=== PATIENT | male | born 1965 | race Caucasian/White ===

== ENCOUNTER 2022-07-25 11:12 | Day surgery (SDC) | payer OTHER, SELFPAY ==
[2022-06-17 11:56] VITALS: BMI 32.9
[2022-07-06 13:52] VITALS: BMI 33.2
[2022-07-25 12:00] VITALS: BP 138/90; RESP 12; TEMP 36.9; O2SAT 98; BMI 33.0
[2022-07-25] MEDS: LACTATED RINGERS 1,000 ML 150 ML IV CONT (12:11)
--- NOTE | 2022-07-25 12:11 | WPDANESEPPF ---
Anes - Initial Pre Proc Eval Procedure: Operation Date: 07/25/22 13:00 Proposed Procedures p Screening Colonoscopy - Basil Howard MD Date/Time: 07/25/22 12:11 Surgeon: Basil Howard MD Pre Op Diagnosis: Family HX Malignant Neoplasm of Digestive Organ Patient Data Age: 57 Gender: M Height: 1.8 m Weight: 107.25 kg Last Vital Signs Temp 36.9 C 07/25/22 12:00 Resp 12 07/25/22 12:00 BP 138/90 07/25/22 12:00 Pulse Ox 98 07/25/22 12:00 O2 Del Method Room Air 07/25/22 12:00 Allergies Allergy/AdvReac Type Severity Reaction Status Date / Time No Known Allergies Allergy Verified 07/25/22 11:52 Home Medications Medication Instructions Recorded Confirmed Type sodium,potassium,mag sulfates 17.5 See Rx Instructions PO .COMPLEX 06/17/22 Rx gram-3.13 gram-1.6 gram oral soln #354 mL (Suprep Bowel Prep Kit) Patient hx anesthesia problems: none Family hx anesthesia problems: none Results Review: All pre-operative results and documents have been reviewed as part of the pre-operative evaluation. 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 Informed Consent: The patient's anesthetic plan and its attendant risks and benefits were discussed with the patient/family/POA. Questions were solicited and answers provided to the satisfaction of the patient/family/POA.
--- NOTE | 2022-07-25 12:23 | P.HP_ITS ---
History of Present Illness History of Present Illness Consent: Risks, benefits, and alternatives have been discussed and questions answered. Patient agrees to proceed with procedure. Chief complaint: Family HX Malignant Neoplasm of Digestive Organ Narrative: John Winters is a 57 year old male presents for screening colonoscopy. Patient reports that his current weight appetite and bowel movements are normal. Patient denies abdominal pain. He has had no bleeding. Family history is significant he has an uncle with colon cancer. Patient reports and he is unaware of any first-degree relatives with polyps or colon cancer. Patient presents today for screening colonoscopy. Review of Systems Review of Systems: review of systems noncontributory. 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 [employer] care concerns: No Agree to blood products: Yes Meds Home Medications and Allergies Home Medications Medication Instructions Recorded Confirmed Type sodium,potassium,mag sulfates 17.5 See Rx Instructions PO .COMPLEX 06/17/22 Rx gram-3.13 gram-1.6 gram oral soln #354 mL (Suprep Bowel Prep Kit) Allergies Allergy/AdvReac Type Severity Reaction Status Date / Time No Known Allergies Allergy Verified 07/25/22 11:52 Vital Signs Vital Signs - 24 hr 07/25/22 12:00 Temperature 98.4 F Respiratory Rate 12 Blood Pressure 138/90 Pulse Oximetry 98 Oxygen Delivery Room Air Exam Narrative: Physical exam reveals patient to be alert. Vital signs stable. HEENT exam is unremarkable. Patient is anicteric. Lungs are clear to auscultation and percussion. Heart is without murmur or extra sounds. Abdomen bowel sounds present soft nontender with no organomegaly. Digital external rectal exam is normal. Assessment and Plan Assessment and plan (1) Encounter for screening colonoscopy: Code(s): Z12.11 - Encounter for screening for malignant neoplasm of colon Status: Acute Assessment and Plan: Patient presents today for screening colonoscopy. Family history is significant for an uncle with colon cancer. Further recommendations will be given after endoscopy.
[2022-07-25 12:48] VITALS: BP 144/77; PULSE 77; RESP 16; O2SAT 100
[2022-07-25 12:58] VITALS: BP 136/82; PULSE 72; RESP 16; O2SAT 99
--- NOTE | 2022-07-25 13:03 | WPDANESPN ---
Anes - Prog Note Post-Op Date/Time: 07/25/22 13:03 Cardiovascular status: normal Respiratory status: normal Airway patency: baseline Mental status: baseline Post-Op hydration status: normal Vital Signs: Last Vital Signs Temp 36.9 C 07/25/22 12:00 Resp 12 07/25/22 12:00 BP 138/90 07/25/22 12:00 Pulse Ox 98 07/25/22 12:00 O2 Del Method Room Air 07/25/22 12:00 Pain Score (VAS): 0/10 I/O: Intake & Output 07/24/22 07/25/22 07/25/22 23:59 07:59 15:59 Intake Total 400 Balance 400 Patient Feedback: Patient satisfied with anesthetic care.
[2022-07-25 13:08] VITALS: BP 131/94; PULSE 69; RESP 16
--- NOTE | 2022-07-25 13:32 | SUR.PHASEII ---
PT AWAKE AND ALERT. DRINKING JUICE. DENIES PAIN. READY FOR DISCHARGE.
== END 2022-07-25 13:32 | disposition home or self-care (01) ==
PROVIDERS: PCP Family Medicine; Visit Provider Internal Medicine Gastroenterology
PROC: 0DJD8ZZ Inspection of Lower Intestinal Tract, Via Natural or Artificial Opening Endoscopic (ICD-10-PCS; CPT 45378; principal; 2022-07-25 13:00)
DX: Z12.11 Encounter for screening for malignant neoplasm of colon (principal)
CPT/HCPCS: 45378